=== PATIENT | male | born 1995 | race Caucasian/White ===

== ENCOUNTER 2023-02-05 19:06 | Emergency (ER) | payer BC, SELFPAY ==
[2023-02-05] VITALS (15 sets, daily range): BP systolic 96–165; BP diastolic 63–101; PULSE 48–99; RESP 16–18; TEMP 36.6; O2SAT 97–100; BMI 32.3
--- NOTE | 2023-02-05 19:46 | CRLHL7_ITS ---
For Patients: As a result of the Century Cures Act, medical imaging exams and procedure reports are released immediately into your electronic medical record. You may view this report before your referring provider. If you have questions, please contact your health care provider. CLINICAL HISTORY: Worst headache of life. Neck pain. TECHNIQUE: Standard helical CT image acquisition of the brain was performed. COMPARISON: None available. FINDINGS: There is no intracranial hemorrhage, extra-axial collection, mass effect, or midline shift. Henderson-white matter differentiation is preserved. The ventricles are normal in size and morphology for patient age. The calvarium is unremarkable. The orbits are unremarkable. The paranasal sinuses are unremarkable. The mastoid air cells are unremarkable. IMPRESSION: No CT evidence of acute intracranial abnormality. Please note that all CT scans at this facility use dose modulation, iterative reconstruction, and/or weight-based dosing when appropriate to reduce radiation dose to as low as reasonably achievable. Dictated by Margarito Aden MD @ 02/05/2023 8:47:17 PM (Electronically Signed)
--- NOTE | 2023-02-05 19:46 | CRLHL7_ITS ---
For Patients: As a result of the Century Cures Act, medical imaging exams and procedure reports are released immediately into your electronic medical record. You may view this report before your referring provider. If you have questions, please contact your health care provider. CLINICAL HISTORY: Severe headache. TECHNIQUE: CTA head with contrast bolus tracking. 3D angiographic rendering using maximum intensity projection (MIP) and images permanently archived. COMPARISON: None available. FINDINGS: The petrous, cavernous, and supraclinoid segments of the internal carotid arteries are patent. The anterior and middle cerebral arteries are patent. The anterior communicating artery is visualized and is within normal limits. The intracranial vertebral arteries, basilar trunk, and posterior cerebral arteries are patent. No intracranial proximal large vessel occlusion or flow-limiting luminal stenosis. No evidence of cerebral aneurysm. No findings to suggest an arterial-venous shunting lesion. IMPRESSION: No intracranial proximal large vessel occlusion, flow-limiting luminal stenosis, or cerebral aneurysm. Please note that all CT scans at this facility use dose modulation, iterative reconstruction, and/or weight-based dosing when appropriate to reduce radiation dose to as low as reasonably achievable. Dictated by Margarito Aden MD @ 02/06/2023 10:16:19 AM (Electronically Signed)
--- NOTE | 2023-02-05 19:46 | CRLHL7_ITS ---
For Patients: As a result of the Cures Act, medical imaging exams and procedure reports are released immediately into your electronic medical record. You may view this report before your referring provider. If you have questions, please contact your health care provider. CLINICAL HISTORY: Severe headache. TECHNIQUE: CTA neck with contrast bolus tracking. 3D angiographic rendering using maximum intensity projection (MIP) and images permanently archived. COMPARISON: None available. FINDINGS: The great vessels are patent. The common carotid arteries are patent. The proximal ICAs are patent without signficant stenoses by NASCET criteria. The more distal cervical ICAs are patent. The origins of the vertebral arteries are patent. The cervical segments of the vertebral arteries are patent. IMPRESSION: Patent cervical arterial vasculature without hemodynamically significant luminal stenosis. Please note that all CT scans at this facility use dose modulation, iterative reconstruction, and/or weight-based dosing when appropriate to reduce radiation dose to as low as reasonably achievable. Dictated by Margarito Aden MD @ 02/06/2023 10:13:35 AM (Electronically Signed)
[2023-02-05 20:14] LABS: Basophils Percent Auto 0.1 % (0.0-3.0); Eosinophils Percent Auto 0.9 % (0.0-7.0); Hematocrit 45.5 % (37.0-53.0); Hemoglobin* 15.4 gm/dL (13.5-17.5); Immature Granulocytes Pct Auto 0.4 %; Lymphocytes Percent Auto 15.9 % (20-44); Mean Corpuscular HGB Conc 34 gm/dL (32-36); Mean Corpuscular Hemoglobin 29 pg (26-34); Mean Corpuscular Volume 87 fL (80-100); Monocytes Percent Auto 7.3 % (0.0-11.0); Neutrophils Percent Auto 75.4 % (42.0-72.0); Platelet Count* 272 K/uL (140-440); RDW Coefficient of Variation % 12.5 % (11.5-15.5); Red Blood Count 5.26 m/uL (4.30-5.90); White Blood Count* 11.28 K/uL (4.50-11.00)
[2023-02-05 20:16] LABS: Slide Review Reflex No
[2023-02-05 20:26] LABS: Chloride* 102 mmol/L (96-114); Potassium* 3.6 mmol/L (3.6-5.1); Sodium* 140 mmol/L (135-149)
[2023-02-05 20:28] LABS: INR 1.04 (0.91-1.10); Prothrombin Time 14.2 Seconds
[2023-02-05 20:29] LABS: Anion Gap 14 mEq/L (7-15); Blood Urea Nitrogen* 10 mg/dL (5-24); Calcium* 9.5 mg/dL (8.4-10.6); Carbon Dioxide* 24 mmol/L (20-32); Est. Creatinine Clearance* 138.64; Estimated Glomerular Filt Rate 107 ml/min; Glucose* 91 mg/dL (60-115); Partial Thromboplastin Time* 28 Seconds (23-33)
--- NOTE | 2023-02-05 21:34 | ED_ITS ---
HPI - General Adult General Date Seen: 02/05/23 Chief complaint: Headache/Migraine Stated complaint: Pounding headache, dizzy, sore neck-fam hs strokes Time Seen by Provider: 02/05/23 19:40 History of Present Illness HPI narrative: This is a pleasant 27-year-old male who presents to the ER today with his fiancee with concern for headache. He is generally healthy with no long-term medical conditions. Does not typically have headaches. His father had an arter ial venous malformation which apparently caused a stroke. He has been healthy and well lately. Yesterday he had a fairly mild headache but it was not significant. Prior to that no other symptoms. No recent fever, sore throat, earache, cough, nasal congestion. No recent head injury. No other symptoms associated with the headache. He was able to sleep last night but this morning when it woke up is at a his headache was much worse. He was nauseous and had 1 episode of nonbilious, nonbloody vomiting. Since this morning nausea is improved but he has had a persistent headache throughout the entire day. Headache is across the forehead and also on the back of his head. There is no positional component. Nothing clearly makes it better or worse. No other symptoms with the headache. No visual disturbance. No numbness or tingling in his face, arms or legs. No focal weakness. No confusion. No speech disturbance. His fiancee and children are healthy. No symptoms with them. He has a function current this and function and carbon monoxide detectors at home. At this point no suspicion for CO exposure. Related Data Home Medications Medication Instructions Recorded Confirmed No Known Home Medications 02/05/23 02/05/23 Allergies Allergy/AdvReac Type Severity Reaction Status Date / Time No Known Drug Allergies Allergy Verified 02/05/23 19:36 Exam Narrative: Exam Narrative: Constitutional: Appears well-developed and well-nourished. Alert. Conversant. Non toxic. HENT: Head: Atraumatic. Nose: Nose normal. No depressed skull fracture, Racoon Eyes, Dalton's sign, or hemotympanum. Face normal. Mouth/Throat: Oral mucosa is clear and moist. no trismus. Pharynx normal. Tonsils symmetric. No tonsillar enlargement, erythema, or exudate. Eyes: Conjunctivae normal. EOM normal. Pupils equal, round, and reactive to light. No scleral icterus. Neck: Normal range of motion. Neck supple. No tracheal deviation present. Cardiovascular: Normal rate, regular rhythm. No gallop. No friction rub. No murmur heard. Pulmonary/Chest: Effort normal. No stridor. No respiratory distress. No wheezes. No rales. No rhonchi . No tenderness. Abdominal: Soft. No distension. No mass. No tenderness. No rebound. No guarding. Musculoskeletal: RUE: Normal range of motion. No tenderness. No deformity LUE: Normal range of motion. No tenderness. No deformity RLE: Normal range of motion. No edema. No tenderness. No deformity LLE: Normal range of motion. No edema. No tenderness. No deformity Lymph: No cervical adenopathy. Neurological: Mental status normal. Attention normal. Alert and oriented x3. GCS 15. Memory normal. Speech fluent. Cognition normal. Cranial Nerves intact II-XII except I did not formally test gag or visual acuity. EOMI. Palate elevates symmetrically and tongue protrudes in the midline. Strength: 5/5 trapezius on the right and left 5/5 deltoid on the right and left 5/5 biceps on the right and left 5/5 triceps on the right and left 5/5 dairy bacteriologist on the right and left 5/5 thumb opposition on the right and le ft 5/5 finger abduction on the right and le ft 5/5 hip flexors (L3) on the right and le ft 5/5 quadriceps (L4) on the right and lef t 5/5 tibialis anterior on the right and l eft 5/5 EHL (L5) on the right and left 5/5 gastrocnemius (S1) on the right and left 5/5 hamstring on the right and left Sensation intact to light touch in both upper extremities (C4-T1) Sensation intact to light touch in Both lower extremities (L4-S1). Finger to nose and coordination normal. Gait normal. Skin: Skin is warm and dry. No rash noted. No pallor. Normal capillary refill. Psychiatric: Normal mood. Normal affect. Very pleasant. Const: Vital Signs, click to edit/add: Vital Signs - 24 hr 02/05/23 19:28 02/05/23 19:45 02/05/23 19:46 Temperature 98 F 98 F Pulse Rate Pulse Rate [Pulse Oximeter] 99 90 Respiratory Rate 18 16 Blood Pressure Blood Pressure [Le ft Upper Arm] 132/89 139/80 Pulse Oximetry 100 100 97 Oxygen Delivery Me thod Room Air Room Air 02/05/23 20:20 02/05/23 20:43 02/05/23 20:45 Temperature 98 F Pulse Rate Pulse Rate [Pulse Oximeter] 80 92 81 Respiratory Rate 16 18 18 Blood Pressure Blood Pressure [Le ft Upper Arm] 138/80 139/93 H 130/80 Pulse Oximetry 100 97 97 Oxygen Delivery Me thod Room Air Room Air Room Air 02/05/23 20:46 02/05/23 21:00 02/05/23 21:00 Temperature 98 F Pulse Rate 53 L 48 L Pulse Rate [Pulse Oximeter] 85 Respiratory Rate 16 Blood Pressure Blood Pressure [Le ft Upper Arm] 134/80 Pulse Oximetry 100 98 98 Oxygen Delivery Me thod Room Air 02/05/23 21:15 02/05/23 21:22 Temperature Pulse Rate 79 Pulse Rate [Pulse Oximeter] 89 Respiratory Rate 16 16 Blood Pressure 125/83 Blood Pressure [Le ft Upper Arm] 139/82 Pulse Oximetry 100 99 Oxygen Delivery Me thod Room Air Course Vital Signs Vital signs: Initial Vital Signs Temperature 98 F 02/05/23 19:28 Temperature Source Temporal Artery Scan 02/05/23 19:28 Pulse Rate 99 02/05/23 19:28 Respiratory Rate 18 02/05/23 19:28 Blood Pressure 132/89 02/05/23 19:28 Blood Pressure Mean 103 02/05/23 19:28 Blood Pressure Position Sitting 02/05/23 19:28 Pulse Oximetry 100 02/05/23 19:28 Oxygen Delivery Method Room Air 02/05/23 19:28 Vital Signs Temperature 98 F 02/05/23 19:28 Pulse Rate 99 02/05/23 19:28 Respiratory Rate 18 02/05/23 19:28 Blood Pressure 132/89 02/05/23 19:28 Pulse Oximetry 100 02/05/23 19:28 Oxygen Delivery Method Room Air 02/05/23 19:28 Temperature 98 F 02/05/23 21:00 Pulse Rate 89 02/05/23 21:22 Respiratory Rate 16 02/05/23 21:22 Blood Pressure 139/82 02/05/23 21:22 Pulse Oximetry 99 02/05/23 21:22 Oxygen Delivery Method Room Air 02/05/23 21:22 Medical Decision Making MDM Narrative Medical decision making narrative: Ths patient presents with a headache. A broad differential diagnosis was considered including tension, migraine, analgesic rebound, occipital neuralgia, etc. Other less common but serious causes considered included meningitis, encephalitis, subarachnoid bleed, stroke, tumor, etc. patient's father had an at AVM that apparently led to a stroke. He and his fiancee were very concerned about that. Headache started yesterday and got worse overnight and was gradually progressive so low suspicion for subarachnoid hemorrhage. However we did feel advanced imaging with CT/CTA was indicated to look for AVM or possible bleed. Fortunately imaging is negative. The patient has no signs of serious headache etiologies at this point. Labs show mild leukocytosis but the patient is not febrile. He does not have any true neck stiffness or any other clear signs of meningitis. At this point we feel that the risk of lumbar puncture would outweigh the benefit. I have order medications for this patient's headache. Unfortunately, they are were inadvertently missed and delayed when nursing staff miss the orders I placed due to the busy ER. They have now been administered. I have discussed my partner, Dr. Adler, will follow-up on the effect to the patient's medications. If his headache is improved he should be able to discharge. If not he will require more medication. Lab Data Labs: Lab Results 02/05/23 Range/Units 19:45 WBC 11.28 H (4.50-11.00) K/uL RBC 5.26 (4.30-5.90) m/uL Hgb 15.4 (13.5-17.5) gm/dL Hct 45.5 (37.0-53.0) % MCV 87 (80-100) fL MCH 29 (26-34) pg MCHC 34 (32-36) gm/dL RDW Coeff of Maureen 12.5 (11.5-15.5) % Plt Count 272 (140-440) K/uL Neut % (Auto) 75.4 H (42.0-72.0) % Lymph % (Auto) 15.9 L (20-44) % [place] % (Auto) 7.3 (0.0-11.0) % Eos % (Auto) 0.9 (0.0-7.0) % Baso % (Auto) 0.1 (0.0-3.0) % Neut # (Auto) 8.50 H (1.7-7.0) K/uL Lymph # (Auto) 1.80 (0.90-2.90) K/uL [place] # (Auto) 0.80 (0.00-0.90) K/UL Eos # (Auto) 0.10 (0.00-0.50) K/uL Baso # (Auto) 0.00 (0.00-0.30) K/uL Abs Immat Gran (auto) 0.00 (0.00-0.30) K/uL Imm/Tot Granulo (auto) 0.4 % INR 1.04 (0.91-1.10) APTT 28 (23-33) Seconds Sodium 140 (135-149) mmol/L Potassium 3.6 (3.6-5.1) mmol/L Chloride 102 (96-114) mmol/L Carbon Dioxide 24 (20-32) mmol/L Anion Gap 14 (7-15) mEq/L BUN 10 (5-24) mg/dL Creatinine 1.0 (0.5-1.5) mg/dL Estimated Creat Clear 138.64 Estimated GFR 107 ml/min Glucose 91 (60-115) mg/dL Calcium 9.5 (8.4-10.6) mg/dL Imaging Data CT scan - head: Attestation: I have reviewed the pertinent imaging results. Radiologist's impression: IMPRESSION: No CT evidence of acute intracranial abnormality. CT angio head and CT angio neck: Attestation: I have reviewed the pertinent imaging results. Radiologist's impression: Preliminary report IMPRESSION: CTA head: No large vessel occlusion or significant aneurysm. CTA neck: No sign of dissection or critical stenosis. Discharge Plan Discharge Clinical Impression: Headache Patient Disposition: Home, Self-Care Condition: Stable Instructions: Acute Headache (DC) Additional Instructions: As we discussed, please come back to the ER right away if you have recurring or worsening headache, recurrent vomiting, blurry vision, high fever neck pain or stiffness, or if you have any other problems. Prescriptions: No Action No Known Home Medications Follow Up/Referrals: Provider,Not a Local [Primary Care Provider] - Stand Alone Forms: Twyxt Info Instructions
--- NOTE | 2023-02-05 21:41 | PC.NURSE ---
MD updated during triage of patients hx and symptom and proceeded with stroke protocol, patient taken directly to stat CT/CTA. asked MD if he would like neuro paged and MD did not want to speak to Neuro after CT/CTA.
[2023-02-05] MEDS: diphenhydrAMINE 50 MG/ML inj 12.5 MG IVP (21:50)
[2023-02-05] MEDS: KETOROLAC 15 MG/ML inj IVP ×2 (21:50→22:45)
[2023-02-05] MEDS: METOCLOPRAMIDE HCL 5 MG/ML INJ 10 MG IVP (21:50)
[2023-02-05] MEDS: dexAMETHasone 4 MG/ML VIAL 8 MG IV (22:45)
[2023-02-05 23:56] LABS: PCR FLU A Negative PCR FLU A (Negative); PCR FLU B Negative PCR FLU B (Negative)
[2023-02-06 00:02] LABS: SARS PCR* Negative SARS-CoV-2 (Negative)
[2023-02-06 00:09] VITALS: BP 102/61; PULSE 85; RESP 16; O2SAT 100
[2023-02-06] MEDS: fentaNYL 100 MCG/2 ML inj 50 MCG IVP (00:17)
== END 2023-02-06 00:30 | disposition home or self-care (01) ==
PROVIDERS: Family Medicine; Emergency Provider Emergency Medicine
DX: R51.9 Headache, unspecified (principal)
CPT/HCPCS: 36415; 70450; 70496; 70498; 80048; 85025; 85610; 85730; 87631; 94761; 96374; 96375; 99283; 99284; J1100; J1200; J1885; J2765; J3010; Q9967